=== PATIENT | female | born 1990 | race African-American/Black ===

== ENCOUNTER → 2024-11-27 | Emergency (ER) | payer OTHER ==
[~2024-11-27] VITALS: Ht 160 cm; Wt 81.6 kg
[~2024-11-27] MED LIST: CEFTRIAXONE SODIUM 1,000 MG VIAL IM ONE; CEFTRIAXONE SODIUM 1,000 MG VIAL ONE; CIPRO500 MG PO; DICLOFENAC SODI75 MG PO; DIPHTH,PERTUSS(ACELL),TET VAC 0.5 ML SYRINGE IM ONE; LIDOCAINE HCL 1% 10ML VIAL IJ ONE
[2024-11-27 21:05] VITALS: BP 130/87; O2SAT 98
== END | disposition home or self-care (01) ==
LOC: ER 20:44
DX: S91.321A Laceration with foreign body, right foot, initial encounter (principal); W26.8XXA Contact with other sharp object(s), not elsewhere classified, initial encounter; Y93.89 Activity, other specified; Y92.480 Sidewalk as the place of occurrence of the external cause
CPT/HCPCS: 12002; 96372; 99282; J0696